=== PATIENT | female | born 1935 | race Caucasian/White ===

== ENCOUNTER → 2023-10-18 11:28 | Outpatient (REF) | payer OTHER, SELFPAY | LOC: RAD 11:28 | PROVIDERS: ATTENDING PHYSICIAN Internal Medicine Geriatric Medicine; REFERRING PHYSICIAN Internal Medicine Interventional Cardiology | DX: G45.9 Transient cerebral ischemic attack, unspecified (principal); I48.0 Paroxysmal atrial fibrillation; C16.9 Malignant neoplasm of stomach, unspecified; Z95.0 Presence of cardiac pacemaker | CPT/HCPCS: 70450 ==

== ENCOUNTER → 2023-10-20 07:46 | Outpatient (REF) | payer OTHER, SELFPAY | LOC: HWRAD 07:46 | PROVIDERS: ATTENDING PHYSICIAN Internal Medicine Geriatric Medicine | DX: G45.9 Transient cerebral ischemic attack, unspecified (principal); I48.0 Paroxysmal atrial fibrillation | CPT/HCPCS: 93880 ==